=== PATIENT | male | born 1955 | race Caucasian/White ===

== ENCOUNTER → 2018-12-21 | Outpatient (CLI) | payer BC | LOC: GMAJ 10:42 | PROVIDERS: ATTEND Family Medicine | DX: Z12.5 Encounter for screening for malignant neoplasm of prostate (principal) ==

== ENCOUNTER → 2019-06-01 | Outpatient (CLI) | payer SELFPAY ==
--- NOTE | 2019-06-02 19:00 | CT ---
EXAM DESCRIPTION: Cardiac Calcium Scoring Screen: Computed Tomography. CLINICAL HISTORY: Coronary Artery Calcium Scoring COMPARISON: None. TECHNIQUE: Spiral-axial scans at 2.5 mm intervals through the coronary arteries without IV contrast. Special algorithm was used, and cardiac gating. No reconstructions. Total Exam DLP: 128.12 mGy-cm. This exam was performed according to our departmental CT dose-optimization program which includes automated exposure control, adjustment of the mA and/or kV according to patient size and/or use of iterative reconstruction technique; to reduce radiation dose to as low as reasonably achievable (ALARA). Some images may have been skipped or repeated due to the heart rhythm or respiration. FINDINGS: The patient has a total Agatston calcium score of 34. This places the patient in the 30th percentile in comparison to a group of patients asymptomatic for coronary artery disease with the same age and gender. This means that 30% of males, ages 61-65 have calcium scores lower than the patient. Majority of the calcium was detected in the LAD coronary artery. The included mediastinum, bilateral oli, and included jennifer-hilar lung show a small calcified nodule in the lingula abutting the left heart border. Subcentimeter lymph nodes are noted in the azygos space, the AP window and subcarinal space. IMPRESSION: 1. Total coronary artery calcium score of 34. 30th percentile for age and gender. 2. The included mediastinum, lung, and jennifer-hilar areas show multiple subcentimeter lymph nodes in the mediastinum. Correlate for history of recent or chronic infectious or inflammatory pulmonary process.. Electronically signed by: Chuckie Ribeiro MD 06/02/2019 6:58 PM CDT
== END ==
LOC: RAD 10:38
PROVIDERS: ATTEND Family Medicine
DX: I65.22 Occlusion and stenosis of left carotid artery (principal)

== ENCOUNTER → 2020-05-29 | Outpatient (CLI) | payer MEDICARE, OTHER | LOC: GMAJ 10:31 | PROVIDERS: ATTEND Family Medicine | DX: Z12.5 Encounter for screening for malignant neoplasm of prostate (principal) ==